=== PATIENT | male | born 1970 | race Caucasian/White ===

== ENCOUNTER 2022-07-30 08:20 | Outpatient (CLI) | payer OTHER, SELFPAY ==
[2022-07-30 13:42] LABS: Albumin* 4.4 g/dL (3.3-5.0)
[2022-07-30 13:43] LABS: Chloride* 104 mmol/L (96-114); Potassium* 5.5 mmol/L (3.6-5.1); Sodium* 139 mmol/L (135-149)
[2022-07-30 13:45] LABS: Aspartate Amino Transferase* 33 U/L (12-35); Bilirubin Total* 0.7 mg/dL (0.1-1.5); Carbon Dioxide* 33 mmol/L (20-32); Cholesterol* 266 mg/dL (90-199); Creatinine* 0.7 mg/dL (0.5-1.5); Estimated Glomerular Filt Rate 112 ml/min; Total Protein* 7.6 g/dL (6.0-8.3)
[2022-07-30 13:46] LABS: Alanine Aminotransferase* 42 U/L (4-50); Alkaline Phosphatase* 71 U/L (40-150); Blood Urea Nitrogen* 14 mg/dL (7-30); Calcium* 9.7 mg/dL (8.4-10.6); Glucose* 99 mg/dL (60-115); HDL Cholesterol* 86 mg/dL (>=40); LDL Cholesterol Calculated 149 mg/dL (<100); Triglycerides* 153 mg/dL (40-149)
== END 2022-07-30 08:21 | disposition home or self-care (01) ==
PROVIDERS: Visit Provider Family Medicine
DX: Z00.00 Encounter for general adult medical examination without abnormal findings (principal); R03.0 Elevated blood-pressure reading, without diagnosis of hypertension; E66.01 Morbid (severe) obesity due to excess calories; F33.9 Major depressive disorder, recurrent, unspecified; Z13.6 Encounter for screening for cardiovascular disorders
CPT/HCPCS: 80053; 80061

== ENCOUNTER 2022-10-08 07:54 | Outpatient (CLI) | payer OTHER, SELFPAY | END 2022-10-08 07:55 | disposition home or self-care (01) | LOC: NFLDREF 10-09 10:57 | PROVIDERS: PCP Family Medicine; Visit Provider Family Medicine | DX: I10 Essential (primary) hypertension (principal); E87.5 Hyperkalemia | CPT/HCPCS: 80048; 83735 ==